=== PATIENT | female | born 1940 | race Hispanic/Latino ===

== ENCOUNTER 2021-03-31 10:31 | Outpatient (CLI) | payer MEDICARE, BC ==
--- NOTE | 2021-03-31 11:57 | Mammography Report ---
DIGITAL SCREENING MAMMOGRAM WITH CAD, 03/31/2021 CLINICAL INFORMATION / INDICATION: Routine screening mammography. SCREENING MAMMO Z12.31 TECHNIQUE: Digital bilateral 2D mammography was obtained in the craniocaudal and mediolateral obliqu e projections. This examination was interpreted with the benefit of Computer-Aided Detection analysis . COMPARISON: 03/28/2020 FINDINGS: Breast Density: There are scattered areas of fibroglandular density. No dominant mass, suspicious calcifications, or architectural distortion in the left breast. Postbiopsy change left breast. Small nodule posterior and lateral to the right nipple anterior depth. IMPRESSION: Right breast nodule. Ultrasound with possible spot compression views is recommended. Follow up recommendation: Ultrasound BI-RADS Category 0: Incomplete. Needs additional imaging evaluation and/or prior mammograms for toby whyte. A "normal" or negative report should not discourage follow up or biopsy of a clinically significant f inding. A written summary of these findings will be mailed to the patient. The patient will be entered into a mammography reporting system which will generate a reminder letter for the patient's next appointmen t at the appropriate interval. The [employer] recommends yearly mammograms starting at age 40 and continuing as l jayleen as a woman is in good health. Breast MRI is recommended for women with an approximate 20-25% or greater lifetime risk of breast cancer, including women with a strong family history of breast or ova diogenes cancer or who have been treated for Hodgkin's disease. Signer Name: Wilfredo Simon MD Signed: 03/31/2021 11:53 AM Workstation Name: [id number]
== END 2021-03-31 10:32 | disposition home or self-care (01) ==
LOC: SPVWC 10:31
PROVIDERS: ATTEND Internal Medicine Hematology & Oncology
DX: Z12.31 Encounter for screening mammogram for malignant neoplasm of breast (principal); N63.10 Unspecified lump in the right breast, unspecified quadrant
CPT/HCPCS: 77067

== ENCOUNTER 2021-04-12 09:49 | Outpatient (CLI) | payer MEDICARE, BC ==
--- NOTE | 2021-04-12 10:40 | Ultrasound Report ---
ULTRASOUND BREAST RIGHT LIMITED, 04/12/2021 CLINICAL INFORMATION / INDICATION: ABN MAMMO. Patient presents as a callback from screening mammogram for further evaluation of a nodular density in the right breast. TECHNIQUE: Targeted ultrasound evaluation was performed of the area of interest. COMPARISON: Prior mammogram 03/31/2021 FINDINGS: Corresponding with the nodular density seen on recent mammogram, there is a slightly irregular hypoec hoic mass seen in the 12:00 subareolar right breast measuring up to 9 x 6 x 8 mm. No internal vascula rity is demonstrated. IMPRESSION: 1. An irregular hypoechoic mass corresponds with the mammographic finding and is considered suspiciou s for malignancy, ultrasound-guided biopsy is recommended. Follow up recommendation: Biopsy BI-RADS Category 4: Suspicious for Malignancy. A normal or "negative" report should not preclude biopsy or follow-up of a clinically suspicious find ing. Signer Name: Arianne Banks MD Signed: 04/12/2021 10:35 AM Workstation Name: [id number]
== END 2021-04-12 09:50 | disposition home or self-care (01) ==
LOC: SPVWC 09:49
PROVIDERS: ATTEND Internal Medicine Hematology & Oncology
DX: C50.212 Malignant neoplasm of upper-inner quadrant of left female breast (principal)